=== PATIENT | male | born 1960 | race Caucasian/White ===

== ENCOUNTER → 2017-09-08 | Outpatient (CLI) | payer BC | END | disposition home or self-care (01) | LOC: US 10:31 | DX: I10 Essential (primary) hypertension (principal); N32.89 Other specified disorders of bladder ==

== ENCOUNTER → 2017-09-13 | Outpatient (CLI) | payer BC | END | disposition home or self-care (01) | LOC: CARD 01:10 | DX: I51.7 Cardiomegaly (principal); I10 Essential (primary) hypertension ==

== ENCOUNTER → 2021-06-23 | Outpatient (CLI) | payer BC | LOC: RAD 16:01 | PROVIDERS: ATTEND Chiropractor | DX: M50.323 Other cervical disc degeneration at C6-C7 level (principal) ==

== ENCOUNTER 2024-06-01 09:28 | Emergency (ER) | payer OTHER ==
[~2024-06-01] VITALS: Ht 185.4 cm; Wt 124.7 kg
[2024-06-01] MEDS ORDERED: SODIUM CHLORIDE 0.9% 1,000 ML IV ONE (10:45)
[2024-06-01 11:21] LABS: BASO # 0.1 10*3/uL (0.0-0.1); BASO % 1.2 % (0.0-1.0); EOS # 0.5 10*3/uL (0.0-0.4); EOS % 4.9 % (1.0-4.0); HEMATOCRIT 41.2 % (42.0-52.0); LYMPH # 2.8 10*3/uL (1.3-4.4); LYMPH % 29.9 % (27.0-41.0); MEAN CELL VOLUME 81.9 fl (80.0-94.0); MEAN PLATELET VOLUME 9.5 fl (9.6-12.3); MONO % 10.7 % (3.0-9.0); NEUT # 4.9 10*3/uL (2.3-7.9); PLATELET COUNT AUTOMATED 374 10*3/uL (130-400); RED BLOOD COUNT 5.03 10*6/uL (4.50-5.90); RED CELL DISTRI WIDTH 13.3 % (0-14.5); WHITE BLOOD COUNT 9.2 10*3/uL (4.8-10.8)
[2024-06-01 11:34] LABS: ACT PARTIAL THROMBO TIME 27.6 SECONDS (20.0-32.1)
[2024-06-01 11:45] LABS: ALKALINE PHOSPHATASE 50 U/L (46-116); BUN 13 mg/dl (9-23); CHLORIDE 101 mmol/L (98-107); LIPASE 98 U/L (12-53); POTASSIUM 3.2 mmol/L (3.4-5.1); SGPT/ALT 34 U/L (5-49); TOTAL PROTEIN 7.2 gm/dL (6.0-8.0)
[2024-06-01] MEDS ORDERED: Meclizine Hydrochloride 12.5 MG TAB PO ONE (12:50)
[2024-06-01] MEDS ORDERED: IOHEXOL 350 MG/ML 100 ML VIAL IV ONE ×2 (12:55→13:07)
[2024-06-01] MEDS ORDERED: SODIUM CHLORIDE 0.9% 100 ML BAG IV ONE (12:55)
[2024-06-01] MEDS ORDERED: SODIUM CHLORIDE 0.9% 100 ML IV ONE (13:08)
[2024-06-01] MEDS ORDERED: MECLIZINE HCL25 M2 PO (14:46)
== END 2024-06-01 15:00 | disposition home or self-care (01) ==
LOC: ED 09:28
PROVIDERS: Internal Medicine
DX: R42 Dizziness and giddiness (principal); R51.9 Headache, unspecified; R11.2 Nausea with vomiting, unspecified; I10 Essential (primary) hypertension; E11.9 Type 2 diabetes mellitus without complications; Z88.0 Allergy status to penicillin

== ENCOUNTER → 2025-03-29 | Outpatient (CLI) | payer OTHER ==
[~2025-03-29] MED LIST: MECLIZINE HCL25 M2 PO
== END | disposition home or self-care (01) ==
LOC: RAD 09:56
PROVIDERS: ATTEND Physician Assistant
DX: M47.816 Spondylosis without myelopathy or radiculopathy, lumbar region (principal)

== ENCOUNTER → 2025-05-24 | Outpatient (CLI) | payer OTHER ==
[2025-05-24 10:53] LABS: BASO # 0.1 10*3/uL (0.0-0.1); BASO % 0.7 % (0.0-1.0); EOS # 0.5 10*3/uL (0.0-0.4); EOS % 4.3 % (1.0-4.0); MEAN CELL VOLUME 81.2 fl (80.0-94.0); MEAN CORPUSCULAR HGB 26.3 pg (27.0-31.0); MEAN PLATELET VOLUME 9.7 fl (9.6-12.3); MONO # 0.9 10*3/uL (0.1-1.0); MONO % 8.3 % (3.0-9.0); NEUT # 6.6 10*3/uL (2.3-7.9); NEUT % 62.3 % (47.0-73.0); NUCLEATED RED BLOOD CELL 0.0 % (0.0-0.0); NUCLEATED RED BLOOD CELL 0.0 10*3/uL (0.0-0.0); PLATELET COUNT AUTOMATED 370 10*3/uL (130-400); RED CELL DISTRI WIDTH 13.4 % (0-14.5)
[2025-05-24 11:17] LABS: BUN 16 mg/dl (9-23); SGPT/ALT 20 U/L (5-49); T3 UPTAKE 38.9 % (22.4-36.7)
== END ==
LOC: LAB 10:26
PROVIDERS: ATTEND Urology
DX: R79.89 Other specified abnormal findings of blood chemistry (principal); R53.83 Other fatigue

== ENCOUNTER → 2025-06-07 | Outpatient (CLI) | payer OTHER | LOC: US 00:42 | PROVIDERS: ATTEND Urology | DX: N28.1 Cyst of kidney, acquired (principal); N50.3 Cyst of epididymis; I86.1 Scrotal varices; E29.1 Testicular hypofunction ==

== ENCOUNTER → 2025-08-10 | Outpatient (CLI) | payer OTHER | END | disposition home or self-care (01) | LOC: US 04:26 | PROVIDERS: ATTEND Urology | DX: N50.3 Cyst of epididymis (principal); E29.1 Testicular hypofunction; I86.1 Scrotal varices; N43.3 Hydrocele, unspecified ==

== ENCOUNTER → 2025-09-04 | Outpatient (CLI) | payer OTHER ==
[2025-09-04 13:32] LABS: BASO # 0.1 10*3/uL (0.0-0.1); BASO % 1.0 % (0.0-1.0); EOS # 0.4 10*3/uL (0.0-0.4); EOS % 3.7 % (1.0-4.0); MEAN CELL VOLUME 80.1 fl (80.0-94.0); MEAN CORPUSCULAR HGB 26.7 pg (27.0-31.0); MEAN PLATELET VOLUME 10.0 fl (9.6-12.3); MONO # 1.4 10*3/uL (0.1-1.0); MONO % 14.3 % (3.0-9.0); NEUT # 5.0 10*3/uL (2.3-7.9); NEUT % 50.8 % (47.0-73.0); NUCLEATED RED BLOOD CELL 0.0 % (0.0-0.0); NUCLEATED RED BLOOD CELL 0.0 10*3/uL (0.0-0.0); PLATELET COUNT AUTOMATED 365 10*3/uL (130-400); RED CELL DISTRI WIDTH 13.7 % (0-14.5)
[2025-09-04 14:26] LABS: BUN 13 mg/dl (9-23); LDH 162 U/L (120-246); SGPT/ALT 39 U/L (5-49)
[2025-09-04 14:29] LABS: BETA-HCG, QUANT < 3.0 mIU/mL (3)
== END | disposition home or self-care (01) ==
LOC: LAB 12:49
PROVIDERS: ATTEND Nurse Practitioner
DX: D40.0 Neoplasm of uncertain behavior of prostate (principal); N50.89 Other specified disorders of the male genital organs; R53.83 Other fatigue; E29.1 Testicular hypofunction